=== PATIENT | female | born 2000 | race Caucasian/White ===

== ENCOUNTER 2019-08-05 09:25 | Emergency (ER) | payer OTHER, BC ==
[2019-08-05 09:44] VITALS: BP 111/61; PULSE 83
--- NOTE | 2019-08-05 11:45 | EDM.PDOC ---
ED HPI GENERAL MEDICAL PROBLEM - General Chief Complaint: Syncope Stated Complaint: SYNCOPE Time Seen by Provider: 08/05/19 10:10 Source of Information: Reports: Patient, RN Notes Reviewed - History of Present Illness INITIAL COMMENTS - FREE TEXT/NARRATIVE: 19 year old female suffered syncopal event about 1 hr ago. She was working out at the [employer]. Started to feel lightheaded, nauseated and dizzy. Sent to the bathroom, had a drink, felt a little bit better. Went back to the workout area, started feeling more dizzy, lightheaded and nauseated and than passed out for a brief time after getting back to the bathroom. She did drink some powerade either during or after the episode. Now resting in the ED at time of my exam she is about back to normal. She has not been ill with any recent illness. No hx of any known medical problems. She did have some yogart and cottage cheese prior to going to work out and had drank some water. 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 Other POWER ELECTRONICS RESEARCH ENGINEER History: Ovarian cysts Other Musculoskeletal History: R shoulder pain Dermatologic History: Reports: Other (See Below) - Past Surgical History HEENT Surgical History: Reports: Oral Surgery, Tonsillectomy GI Surgical History: Reports: Appendectomy Social & Family History - Family History Family Medical History: Noncontributory - Tobacco Use Smoking Status *Q: Never Smoker Second Hand Smoke Exposure: No - Caffeine Use Caffeine Use: Reports: Coffee - Recreational Drug Use Recreational Drug Use: No - Living Situation & Occupation Living situation: Reports: Single Occupation: Student ED ROS GENERAL - Review of Systems Review Of Systems: See Below Constitutional: Reports: Diaphoresis (gone). Denies: Fever, Chills HEENT: Reports: No Symptoms Respiratory: Denies: Shortness of Breath Cardiovascular: Reports: Lightheadedness. Denies: Chest Pain GI/Abdominal: Reports: Nausea (gone). Denies: Abdominal Pain, Diarrhea, Vomiting : Reports: No Symptoms Musculoskeletal: Reports: No Symptoms Skin: Denies: Rash Neurological: Reports: Dizziness (gone), Weakness (gone) - Physical Exam Exam: See Below General Appearance: Alert, No Apparent Distress Eye Exam: Bilateral Eye: PERRL Throat/Mouth: Normal Inspection, Normal Oropharynx Head Exam: Atraumatic, Sinus Tenderness. No: Facial Swelling Neck: Supple, Non-Tender Respiratory/Chest: No Respiratory Distress, Lungs Clear, Normal Breath Sounds Cardiovascular: Regular Rate, Rhythm GI/Abdominal: Soft, Non-Tender Neuro Exam (Abbreviated): Alert, Oriented, No Motor/Sensory Deficits Back Exam: No: Paraspinal Tenderness, Vertebral Tenderness Extremities: Normal Inspection, Normal Range of Motion Skin Exam: Warm, Dry, Normal Color EKG INTERPRETATION EKG Date: 08/05/19 Rhythm: NSR [place]: Normal P-Wave: Present QRS: Normal ST-T: Normal Course - Vital Signs Last Recorded V/S: Last Vital Signs Temp 97.9 F 08/05/19 09:37 Pulse 83 08/05/19 09:37 Resp 18 08/05/19 09:37 BP 111/61 08/05/19 09:37 Pulse Ox 100 08/05/19 09:37 Orthostatic Blood Pressure [ 115/70 Standing] Orthostatic Blood Pressure [ 101/55 Supine] - Orders/Labs/Meds Labs: Laboratory Tests 08/05/19 08/05/19 Range/Units 10:49 10:49 WBC 7.32 (3.98-10.04) K/mm3 RBC 4.45 (3.98-5.22) M/mm3 Hgb 13.4 (11.2-15.7) gm/dl Hct 39.1 (34.1-44.9) % MCV 87.9 (79.4-94.8) fl MCH 30.1 (25.6-32.2) pg MCHC 34.3 (32.2-35.5) g/dl RDW Std Deviation 37.5 (36.4-46.3) fL Plt Count 176 L (182-369) K/mm3 MPV 8.2 L (9.4-12.3) fl Neut % (Auto) 67.7 (34.0-71.1) % Lymph % (Auto) 21.4 (19.3-51.7) % [place] % (Auto) 9.0 (4.7-12.5) % Eos % (Auto) 1.4 (0.7-5.8) Baso % (Auto) 0.4 (0.1-1.2) % Neut # (Auto) 4.95 (1.56-6.13) K/mm3 Lymph # (Auto) 1.57 (1.18-3.74) K/mm3 [place] # (Auto) 0.66 H (0.24-0.36) K/mm3 Eos # (Auto) 0.10 (0.04-0.36) K/mm3 Baso # (Auto) 0.03 (0.01-0.08) K/mm3 Sodium 136 (136-145) mEq/L Potassium 4.0 (3.5-5.1) mEq/L Chloride 103 (98-107) mEq/L Carbon Dioxide 27 (21-32) mEq/L Anion Gap 10.0 (5-15) BUN 15 (7-18) mg/dL Creatinine 0.9 (0.55-1.02) mg/dL Est Cr Clr Drug Dosing 93.34 mL/min Estimated GFR (MDRD) > 60 (>60) mL/min BUN/Creatinine Ratio 16.7 (14-18) Glucose 68 L (74-106) mg/dL Calcium 9.2 (8.5-10.1) mg/dL Total Bilirubin 0.9 (0.2-1.0) mg/dL AST 9 L (15-37) U/L ALT 12 L (14-59) U/L Alkaline Phosphatase 56 (46-116) U/L Total Protein 7.0 (6.4-8.2) g/dl Albumin 4.1 (3.4-5.0) g/dl Globulin 2.9 gm/dL Albumin/Globulin Ratio 1.4 (1-2) - Re-Assessments/Exams Free Text/Narrative Re-Assessment/Exam: 08/06/19 15:13 glucose came back very low at only 68. She did drink some powerade and ate some crackers right after this happened. She feels OK now so suspect her glucose was even lower at time of sx and that likely triggered vasogal syncope on top of hypoglycemia trying to work out. She has had other episodes of nausea , dizziness in the past. She does eat a very healthy high protein diet and likely ran out of glycogen working out in the morning not long after getting up. She has been in sinus rythm, no ectopy, vitals are good at time of discharge , discharge instr. as documented. Departure - Departure Time of Disposition: 11:43 Disposition: Home, Self-Care 01 Condition: Fair Clinical Impression: Syncope, Hypoglycemia - Discharge Information Instructions: Syncope, [id number] Referrals: PCP,None [Primary Care Provider] - Forms: ED Department Discharge Additional Instructions: Your glucose came back at only 68, it is very likely that you had a hypoglycemic reaction which than brought on the vasovagal syncope. Continue to eat regular healthy meals. Consider snacking in between meals and at bedtime to help maintain blood sugar levels as needed. Check some random glucose levels before meals and keep a log of that. Follow up clinic as needed, return to ED as needed if symptoms worsening in any way.
== END 2019-08-05 11:52 | disposition home or self-care (01) ==
LOC: JD.ED 09:25
DX: R55 Syncope and collapse (principal); E16.2 Hypoglycemia, unspecified; Z98.890 Other specified postprocedural states; Z90.49 Acquired absence of other specified parts of digestive tract
CPT/HCPCS: 36415; 80053; 85025; 93005; 93010; 99282; 99284-25

== ENCOUNTER 2021-04-26 22:46 | Emergency (ER) | payer OTHER, BC ==
[2021-04-26 22:58] VITALS: BP 132/85; PULSE 85
--- NOTE | 2021-04-26 23:30 | EDM.PDOC ---
ED HPI GENERAL MEDICAL PROBLEM - General Chief Complaint: General Stated Complaint: POS TB RESULT Time Seen by Provider: 04/26/21 22:57 Source of Information: Reports: Patient History Limitations: Reports: No Limitations - History of Present Illness INITIAL COMMENTS - FREE TEXT/NARRATIVE: Ms. Dorado is a very pleasant 21-year-old woman who now presents the ED with concerns after she was notified tonight that a QuantiFERON gold test, drawn this past Saturday or Saturday, 04/24/2021 or 04/25/2021 as part of the job application process at [facility], returned positive. The patient reports that she had been told in 2018 that she had a positive QuantiFERON gold test, as well. She states that she subsequently had a chest x- ray, which returned as negative, and that she never heard anything after that. The patient states that she was born and raised in the [facility]. 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 Here in the ED, the patient is found to be hemodynamically stable, afebrile, saturating 100% on room air. She appears to be anxious, but in no acute distress. The patient reports that she has had cold-like symptoms, including a cough, for the past week, but no recent fever, night sweats, or weight loss. She denies having a recent sore throat, ear pain, dyspnea, chest pain, palpitations, nausea, vomiting, constipation, diarrhea, abdominal pain, urinary symptoms, recent bloody bowel movements or black bowel movements, recent joint aches, headaches, or rashes. The patient's PCP is Bri Cabrera NP. 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: Endometriosis (laparoscopy-proven), Other (See Below) (Ovarian cysts) - Past Surgical History HEENT Surgical History: Reports: Adenoidectomy, Oral Surgery (dental extractions), Tonsillectomy GI Surgical History: Reports: Appendectomy Female Surgical History: Reports: Other (See Below) (Exploratory laparoscopy for endometriosis x 1) Social & Family History - Tobacco Use Tobacco Use Status *Q: Never Tobacco User - Caffeine Use Caffeine Use: Reports: Coffee - Alcohol Use Alcohol Use History: Yes Alcohol Use Frequency: Socially - Recreational Drug Use Recreational Drug Use: No - Living Situation & Occupation Living situation: Reports: Single, with Significant Other (Darryn + his brother) 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 ED EXAM, GENERAL - Physical Exam Exam: See Below Exam Limited By: No Limitations General Appearance: Alert, WD/WN, No Apparent Distress Eye Exam: Bilateral Eye: EOMI, Normal Inspection Ears: Normal External Exam, Hearing Grossly Normal Nose: Normal Inspection Throat/Mouth: Normal Inspection, Normal Lips, Normal Voice, No Airway Compromise Head: Atraumatic, Normocephalic Neck: Normal Inspection, Full Range of Motion Respiratory/Chest: No Respiratory Distress, Lungs Clear, Normal Breath Sounds, No Accessory Muscle Use. No: Decreased Breath Sounds, Crackles, Rhonchi, Wheezing, Stridor, Prolonged Expiration Cardiovascular: Normal Peripheral Pulses, Regular Rate, Rhythm, No Edema, No Gallop, No JVD, No Murmur, No Rub Peripheral Pulses: 3+: Radial (L), Radial (R) GI/Abdominal: Normal Bowel Sounds, Soft, Non-Tender, No Organomegaly, No Distention, No Abnormal Bruit, No Mass Back Exam: Normal Inspection, Full Range of Motion, NT Extremities: Normal Inspection, Normal Range of Motion, No Pedal Edema, Normal Capillary Refill Neurological: Alert, Oriented, Normal Cognition, No Motor/Sensory Deficits Psychiatric: Normal Affect Skin Exam: Warm, Dry, Intact, Normal Color, No Rash Course - Vital Signs Last Recorded V/S: Last Vital Signs Temp 37.0 C 04/26/21 22:55 Pulse 85 04/26/21 22:55 Resp 16 04/26/21 22:55 BP 132/85 04/26/21 22:55 Pulse Ox 100 04/26/21 22:55 - Orders/Labs/Meds Orders: Active Orders 24 hr Category Date Time Status Chest 2V [CR] Stat Exams 04/26/21 23:24 Taken - Re-Assessments/Exams Free Text/Narrative Re-Assessment/Exam: 04/26/21 23:30 As above, the patient had a QuantiFERON gold test drawn earlier this week, and was told of a positive result trudy. In reviewing prior labs, she had a positive QuantiFERON gold on 01/09/2018, with a normal chest x-rays on 01/07/2018 and 01/11/2020, but, oddly, negative QuantiFERON gold tests on 02/13/2018 and 06/15/2020. It is unclear how she could have both positive and negative QuantiFERON gold tests. For trudy's purposes, I have ordered a chest x-ray, which I anticipate will be unremarkable. The patient will then need to follow- up with Infectious Disease to see if she needs treatment for latent tuberculosis, or not. 04/27/21 00:54 2-view chest radiograph is read by Cristhian as "No acute findings." 04/27/21 00:55 Test results discussed with the patient and her fianc. I will have the patient follow-up with Bri Cabrera NP, who can then refer the patient to an Infectious Disease specialist in [place], who can then decide if the patient requires treatment for latent TB or not. 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 Work-up in the ER included a chest x-ray, which was read by the Radiologist as normal. In reviewing your prior evaluations, you had a positive QuantiFERON gold test on 01/09/2018, but negative QuantiFERON gold tests on 02/13/2018 and 06/08/2020. Chest x-rays on 01/15/2018 and 01/11/2020 were normal, as well. We recommend that you follow-up with Bettina Rick, AFFILIATE MARKETING MANAGER, to have her refer you to an Infectious Disease specialist in [place]. The Infectious Disease specialist can then determine if you need treatment for latent TB or not. If any other problems, please do not hesitate to return to the ER. Sepsis Event Note (ED) - Evaluation Sepsis Screening Result: No Definite Risk - Focused Exam Vital Signs: Vital Signs Temp Pulse Resp BP Pulse Ox 04/26/21 22:55 37.0 C 85 16 132/85 100 - My Orders Last 24 Hours: My Active Orders 04/26/21 23:24 Chest 2V [CR] Stat - Assessment/Plan Last 24 Hours: My Active Orders 04/26/21 23:24 Chest 2V [CR] Stat
--- NOTE | 2021-04-27 07:40 | CR ---
Chest: PA and lateral views of the chest were obtained. Comparison: Prior chest x-ray of 01/11/20. Heart size and mediastinum are normal. Lungs are clear with no acute parenchymal change. No acute osseous abnormality is appreciated. Impression: 1. Nothing acute is seen on 2 view chest x-ray. Diagnostic code #1 I agree with preliminary report from [facility], finalized on 04/27/21, 1:52 AM CDT, code 1
== END 2021-04-27 01:10 | disposition home or self-care (01) ==
LOC: JD.ED 22:46
DX: R76.12 Nonspecific reaction to cell mediated immunity measurement of gamma interferon antigen response without active tuberculosis (principal)
CPT/HCPCS: 71046; 71046-26; 99283; 99283-25

== ENCOUNTER 2025-09-07 10:52 | Inpatient (IN) | payer BC ==
[2025-09-07] MEDS: Lactated Ringers 1,000 ML IV SCH (10:52)
[2025-09-07] MEDS ORDERED: Sodium Chloride 0.9% 10 ML Syringe FLUSH PRN (10:56)
[2025-09-07] MEDS ORDERED: Ondansetron 4 MG/2 ML SDV IVPUSH PRN (10:56)
[2025-09-07] MEDS ORDERED: Nalbuphine 10 MG/1 ML Vial IVPUSH PRN (10:56)
[2025-09-07] MEDS ORDERED: Oxytocin/0.9 % Sodium Chloride 30 UNIT/500 ML BAG IV SCH (11:00)
[2025-09-07] MEDS ORDERED: diphenhydrAMINE 50 MG/ML SDV IVPUSH PRN (11:12)
[2025-09-07] MEDS ORDERED: ePHEDrine 50 MG/ML SDV IVPUSH PRN (11:12)
[2025-09-07 11:17] LABS: BASOPHILS ABSOLUTE AUTO 0.0 K/mm3 (0.0-0.2); BASOPHILS PERCENT AUTO 0.3 % (0.0-1.0); EOSINOPHILS ABSOLUTE AUTO 0.0 K/mm3 (0.0-0.4); EOSINOPHILS PERCENT AUTO 0.2 % (0.0-6.0); IMMATURE GRAN ABSOLUTE AUTO 0.13 K/mm3 (0.00-0.05); IMMATURE GRAN PERCENT AUTO 1.0 % (0.0-0.4); LYMPHOCYTES ABSOLUTE AUTO 1.3 K/mm3 (1.0-4.8); LYMPHOCYTES PERCENT AUTO 9.8 % (24.0-44.0); MEAN PLATELET VOLUME 8.1 fl (9.4-12.3); MONOCYTES ABSOLUTE AUTO 0.8 K/mm3 (0.0-0.8); MONOCYTES PERCENT AUTO 5.9 % (0.0-8.0); NEUTROPHILS ABSOLUTE AUTO 11.2 K/mm3 (1.8-7.7); NEUTROPHILS PERCENT AUTO 82.8 % (41.0-71.0); NRBC ABSOLUTE 0.00 (0.00-0.02); NRBC PERCENT 0.0 % (0.0-0.2); PLATELET COUNT,PLT 213 K/mm3 (150-400); RED BLOOD CELL COUNT 4.43 M/mm3 (4.10-5.30); WHITE BLOOD CELL COUNT,WBC 13.50 K/mm3 (3.9-11.3)
[2025-09-07] MEDS: fentaNYL 100 MCG/2 ML SDV EPIDUR PRN (11:19)
[2025-09-07] MEDS: Bupivacaine/fentaNYL/NS 100 ML Bag EPIDUR PRN (11:19)
[2025-09-07] MEDS: Oxytocin/0.9 % Sodium Chloride 30 UNIT/500 ML BAG IV SCH (16:44)
[2025-09-07] MEDS: Benzocaine/Menthol 20%-0.5% Spray 78 GM Cannister TOP PRN (18:44)
[2025-09-07] MEDS: Witch Hazel Medicated Pads 40/Jar TOP PRN (18:44)
[2025-09-07] MEDS ORDERED: Sodium Chloride 0.9% 10 ML Syringe FLUSH SCH (21:00)
[2025-09-09 09:10] VITALS: BP 119/65; PULSE 75
== END 2025-09-09 12:43 | disposition home or self-care (01) | DRG 560 ==
LOC: JD.OBCHECK 10:52 → JD.OB 10:55 → JD.OBCHECK 10:57 → JD.OB 10:58 → OBSVTOIN 16:36 → JD.OB 16:37
PROVIDERS: ADMIT Obstetrics & Gynecology; ATTEND Obstetrics & Gynecology
PROC: 10D07Z6 Extraction of Products of Conception, Vacuum, Via Natural or Artificial Opening (ICD-10-PCS; principal; 2025-09-07)
PROC: 0KQM0ZZ Repair Perineum Muscle, Open Approach (ICD-10-PCS; 2025-09-07)
PROC: 10907ZC Drainage of Amniotic Fluid, Therapeutic from Products of Conception, Via Natural or Artificial Opening (ICD-10-PCS; 2025-09-07)
PROC: 3E033VJ Introduction of Other Hormone into Peripheral Vein, Percutaneous Approach (ICD-10-PCS; 2025-09-07)
PROC: 3E0R3BZ Introduction of Anesthetic Agent into Spinal Canal, Percutaneous Approach (ICD-10-PCS; 2025-09-07)
PROC: 00HU33Z Insertion of Infusion Device into Spinal Canal, Percutaneous Approach (ICD-10-PCS; 2025-09-07)
DX: O99.52 Diseases of the respiratory system complicating childbirth (principal); Z37.0 Single live birth; O41.1230 Chorioamnionitis, third trimester, not applicable or unspecified; O70.1 Second degree perineal laceration during delivery; J45.909 Unspecified asthma, uncomplicated; Z98.890 Other specified postprocedural states; Z3A.38 38 weeks gestation of pregnancy; Z90.49 Acquired absence of other specified parts of digestive tract
CPT/HCPCS: 01967; 36415; 51701; 51702; 59025; 59409; 85025; 86592; 86850; 86900; 86901; A9270-GY; C1758; J0290; J0665; J2210; J3010; J3490; J7120; J7999